=== PATIENT | male | born 1975 ===

== ENCOUNTER 2017-10-25 09:11 | Emergency (ER) | payer BC ==
[2017-10-25 09:24] VITALS: BP 127/82
--- NOTE | 2017-10-25 10:28 | UC ---
Skin Complaint HPI - HPI Summary HPI Summary: 42 y/.o male with + migraine history, no meds, presents with Tick bite on right flank x Tuesday. Patient was walking in [place] that day, no fever, chills, rashes. feeling well otherwise, unable to remove it himself. - History of Current Complaint Chief Complaint: UCSkin Time Seen by Provider: 10/25/17 10:12 Stated Complaint: TICK BITE Hx Obtained From: Patient Onset/Duration: Sudden Onset, Lasting Days Current Severity: None Pain Intensity: 0 Pain Scale Used: 0-10 Numeric - Allergy/Home Medications Allergies/Adverse Reactions: Allergies Allergy/AdvReac Type Severity Reaction Status Date / Time No Known Allergies Allergy Verified 10/25/17 09:20 Review of Systems Constitutional: Negative Skin: Negative Eyes: Negative ENT: Negative Respiratory: Negative Cardiovascular: Negative Gastrointestinal: Negative Genitourinary: Negative Motor: Negative Neurovascular: Negative Musculoskeletal: Negative Neurological: Negative Psychological: Negative Is Patient Immunocompromised?: No All Other Systems Reviewed And Are Negative: Yes PMH/Surg Hx/FS Hx/Imm Hx - Additional Past Medical History Additional PMH: migraines Previously Healthy: Yes - Surgical History Surgical History: Yes Surgery Procedure, Year, and Place: Left elbow - Social History Alcohol Use: Occasionally Substance Use Type: None Smoking Status (MU): Never Smoked Tobacco Physical Exam Triage Information Reviewed: Yes Appearance: Well-Appearing, No Pain Distress, Well-Nourished Vital Signs: Initial Vital Signs Temp 97.9 F 10/25/17 09:17 Pulse 75 10/25/17 09:17 Resp 18 10/25/17 09:17 BP 127/82 10/25/17 09:17 Pulse Ox 99 10/25/17 09:17 Musculoskeletal Exam: Normal Neurological Exam: Normal Psychological Exam: Normal Skin: Positive: Other - engorged tick on right flank with erytehma around bite. no bullseye rashes seen. non-tender. Course/Dx - Course Course Of Treatment: tick removed completely. prophylaxis given. infor on lyme given - Diagnoses Provider Diagnoses: tick bite, lyme prophylaxis Discharge - Sign-Out/Discharge Documenting (check all that apply): Discharge/Admit/Transfer - Discharge Plan Condition: Good Disposition: HOME Patient Education Materials: Lyme Disease (ED), Tick Bite (ED) Referrals: No Primary Care Phys,NOPCP [Primary Care Provider] - Additional Instructions: - Follow up for increased redness, irritation. - Billing Disposition and Condition Condition: GOOD Disposition: HOME
[2017-10-25] MEDS ORDERED: DOXYcycline CAP(*) 100 MG PO ONE (10:32)
== END 2017-10-25 10:37 | disposition home or self-care (01) ==
LOC: UCEAST 09:11
DX: S20.461A Insect bite (nonvenomous) of right back wall of thorax, initial encounter (principal); W57.XXXA Bitten or stung by nonvenomous insect and other nonvenomous arthropods, initial encounter; Y93.01 Activity, walking, marching and hiking; Y92.821 Forest as the place of occurrence of the external cause
CPT/HCPCS: 99202; A9270-GY; G0463

== ENCOUNTER 2019-02-25 10:01 | Emergency (ER) | payer BC ==
[2019-02-25 10:28] VITALS: BP 116/73
--- NOTE | 2019-02-25 10:29 | UC ---
Knee Pain HPI - HPI Summary HPI Summary: Patient presents to urgent care reporting pain in his left knee. Patient states approximately 3:00 yesterday he squatted down to place taken the ground. Patient states he felt a pop and pull on the inside of his right knee. Patient states since this time with any kind of extension he has increased pain. States is better with flexion. Patient took Motrin yesterday with improvement. No Motrin taken today. Patient applied ice yesterday. No ice applied today. No ankle pain. No paresthesias. No previous history of injury to this left knee. Patient medications reviewed this visit. - History of Current Complaint Chief Complaint: UCLowerExtremity Stated Complaint: KNEE INJURY Time Seen by Provider: 02/25/19 10:25 Hx Obtained From: Patient, Other: - Margy Carranza | Reference #: [id number] Severity Initially: Moderate Severity Currently: Moderate - with extension, 2/10 at rest Pain Intensity: 8 - Allergies/Home Medications Allergies/Adverse Reactions: Allergies Allergy/AdvReac Type Severity Reaction Status Date / Time No Known Allergies Allergy Verified 02/25/19 10:28 PMH/Surg Hx/FS Hx/Imm Hx Previously Healthy: Yes - Surgical History Surgical History: Yes Surgery Procedure, Year, and Place: Left elbow - Family History Known Family History: Positive: Non-Contributory - Social History Occupation: Employed Full-time Lives: With Family Alcohol Use: Occasionally Substance Use Type: None Smoking Status (MU): Never Smoked Tobacco Review of Systems All Other Systems Reviewed And Are Negative: Yes Constitutional: Positive: Negative Skin: Positive: Negative Musculoskeletal: Positive: Other: - left knee Physical Exam - Summary Physical Exam Summary: Vital Signs Reviewed: Yes A+Ox3, no distress Eyes: Conjunctiva Clear, ENT: Hearing grossly normal, mmmoist Neck: Positive: Supple Respiratory: Positive: No respiratory distress, No accessory muscle use Cardiovascular: 2+ PT Musculoskeletal Exam: +flex/ext ankle without difficult + full flexion left knee wihtout difficulty. pt with pain with active extension - pain is along inferior margin of medial joint line Pain improves with passive Extension. no patellar tendon pain No laxity lateral joint line tesitng neg anterior/ posterior drawer, walk with limp Neurological: Positive: Alert, + sensation throughout Psychological: Positive: Normal Response To examiner Skin: Positive: no rash, no ecchymosis Triage Information Reviewed: Yes Vital Signs: Initial Vital Signs Temp 98.8 F 02/25/19 10:26 Pulse 76 02/25/19 10:26 Resp 16 02/25/19 10:26 BP 116/73 02/25/19 10:26 Pulse Ox 100 02/25/19 10:26 Diagnostics - Radiology No standard instances Radiology Interpretation Completed By: Radiologist - Patient Name: ALEXANDER PEGUERO Medical Record#: [id number] Ordering Physician: Margy Carranza MD Acct.#: [id number] : 1975 Age: 44 Sex: M Location: [facility] Exam Date: 02/25/19 1051 ADM Status: REG ER Order Information: KNEE LEFT 4+ VWS Accession Number: [id number] CPT: 17549 Indication: Medial left knee pain. 4 views of the left knee demonstrates no fracture or dislocation. No other bone or joint abnormality is identified. IMPRESSION: No fracture of the left knee is noted. <Electronically signed by Neli Thompson MD in OV> 02/25/19 1146 Dictated By: Neli Thompson MD Dictated Date/Time: 02/25/19 1145 Transcribed Date/Time: 02/25/19 1145 Copy to: CC:Margy Carranza MD; No Primary Care Phys,NOPCP Imaging - [facility] Imaging - [facility] [address] [address] ph ([phone]) ph ([phone]) ph ([phone]) This report is only to be considered final once signed by the Provider( s) as displayed in the "<Electronically Signed by >" field (s). Absence of a signature indicates the report is in a draft status and still needs to be finalized. In the event this document was created by someone other than the signing Provider, the individual initiating the document will be listed in the "Entered by:" or "Dictated by:" ashley. 1 of 1 Knee Pain Course/Dx - Course Course Of Treatment: Patient presents to urgent care reporting pain in the medial aspect of his left knee. Patient states that occurred when he squatted down yesterday. Patient with sudden pain after feeling a popping sensation. Patient states position of comfort his flexion. Patient's it with extension has increased pain 1 focal spot. No distal paresthesias or weakness. Patient took Motrin yesterday with improvement nothing today. Patient walking limp. Vital signs are stable. On exam patient with pain active extension greater than 45. Patient with point tenderness inferior medial margin of the right. No laxity. No fluid. Range of motion. Passive extension. Discussed the patient will check imaging study to look for joint effusion as well as chip fracture. Aren wrap crutches ice anti -inflammatories and follow with orthopedic or sports medicine. Patient has previously seen Dr. Andrew to lift his His contact number as well as [employer] with on -call sports medicine. Patient states understanding agreement with plan. Patient declined analgesia here. - Differential Dx/Diagnosis Provider Diagnosis: Left knee pain Discharge ED - Sign-Out/Discharge Documenting (check all that apply): Patient Departure All imaging exams completed and their final reports reviewed: Yes - Discharge Plan Condition: Stable Disposition: HOME Patient Education Materials: Knee Sprain (ED), Knee Pain (ED) Referrals: [facility] [Provider Group] Sukhdeep Andrew MD [Medical Doctor] - Liset Brothers MD [Medical Doctor] - No Primary Care Phys,NOPCP [Primary Care Provider] - Additional Instructions: -Wear aren wrap for comfort and support -Apply ice (20 min at a time) every 2-3 hours for the next 2 days -Use crutches until you can walk normally without a limp -Elevate your leg - this will help with swelling and pain - Alternate ibuprofen (advil, Motrin) 600mg and tylenol every 3 hours for pain. Take with food. Do NOT take for more than 4-5 days -Contact an oil and gas specialist or the sports broadcasting internship to schedule a follow-up appoitnment this coming week. Contact your doctor or return with questions or concerns - Billing Disposition and Condition Condition: STABLE Disposition: Home
== END 2019-02-25 12:04 | disposition home or self-care (01) ==
LOC: UCEAST 10:01
DX: M25.562 Pain in left knee (principal)
CPT/HCPCS: 99212; G0463